=== PATIENT | male | born 1990 | race African-American/Black ===

== ENCOUNTER 2021-09-03 12:50 | Emergency (ER) | payer OTHER ==
[~2021-09-03] VITALS: Ht 177.8 cm; Wt 122.0 kg
[2021-09-03] MEDS ORDERED: SODIUM CHLORIDE 0.9% 1,000 ML IV ONE (13:30)
[2021-09-03] MEDS ORDERED: KETOROLAC 15MG/ML VIAL IV NR (14:00)
[2021-09-03 14:25] LABS: BASOPHILS % 1.1 % (0.0-2.0); EOSINOPHILS % 1.4 % (0.0-5.0); HEMATOCRIT. 46.9 % (42.0-52.0); HEMOGLOBIN. 16.2 g/dL (14.0-18.0); LYMPHOCYTES % 48.6 % (20.0-50.0); MEAN CORPUSCULAR VOLUME 89.4 fL (80.0-94.0); MEAN PLATELET VOLUME 8.5 fl (7.4-10.4); MONOCYTES % 7.6 % (2.0-8.0); NEUTROPHILS % 41.3 % (40.0-76.0); PLATELET 380 x1000/uL (130-400); RED BLOOD CELL COUNT 5.25 mill/uL (4.7-6.1); RED CELL DISTRIBUTION WIDTH 13.9 % (11.6-14.6)
[2021-09-03 14:26] LABS: CHLORIDE 107 mEq/L (98-107)
[2021-09-03] MEDS ORDERED: IBUP-2029 MT (15:08)
[2021-09-03 15:30] VITALS: BP 130/86
== END 2021-09-03 16:12 | disposition home or self-care (01) ==
LOC: ER 12:50
DX: R07.9 Chest pain, unspecified (principal); R94.31 Abnormal electrocardiogram [ECG] [EKG]; R03.0 Elevated blood-pressure reading, without diagnosis of hypertension; Z86.16 Personal history of COVID-19; Z98.890 Other specified postprocedural states
CPT/HCPCS: 36415; 71045; 80053; 83880; 84484; 85025; 85379; 93005; 93970; 96361; 96374; 99285; J1885